=== PATIENT | male | born 1955 | race Two or more races ===

== ENCOUNTER 2024-01-14 15:36 | Inpatient (IN) | payer OTHER ==
[~2024-01-14] VITALS: Ht 167.6 cm; Wt 76.0 kg
--- NOTE | 2024-01-14 15:55 | ED.PDOC ---
GI ASSESSMENT HPI Comments 68 y.o male presents to the ED for a chief complaint of diffused abdominal pain and diarrhea x 3 weeks. Patient describes pain as sharp, constant, diffused across abdomen region, and rates it a 8/10 on the pain scale. Patient states passing black stool recently and states pain worsens with eating. No nausea, vomiting, fever, chills, or urinary symptoms reported. Time Seen by MD: 15:49 Reviewed Notes: Nurses Notes, Medications, Allergies Allergies: Coded Allergies: NO KNOWN ALLERGIES (Unverified , 01/14/24) Information Source: Patient Mode of Arrival: Ambulatory Timing: Weeks (3) Duration: Since onset Quality: Sharp Vomitus: None Stool: Black Severity: Moderate Recent: None Recent Hx of: None Pain Location: Diffuse Modifying Factors: Nothing Associated sign and symptoms: Melena, Abdominal Pain Past Medical History PAST MEDICAL HISTORY: DM Surgical History: Denies all surgeries Family History Family History: Reviewed,noncontributory to illness Social History Smoker: Non-Smoker Alcohol: Occasionally Drugs: Denies Drug Use Lives In: Home Constitutional: denies: chills, diaphoresis, fatigue, fever, malaise, sweats, weakness, others EENTM: denies: blurred vision, double vision, ear bleeding, ear discharge, ear drainage, ear pain, ear ringing, eye pain, eye redness, hearing loss, mouth pain, mouth swelling, nasal discharge, nose bleeding, nose congestion, nose pain, photophobia, tearing, throat pain, throat swelling, voice changes, others Respiratory: denies: cough, hemoptysis, orthopnea, SOB at rest, shortness of breath, SOB with excertion, stridor, wheezing, others Cardiovascular: denies: chest pain, dizzy spells, diaphoresis, Dyspnea on exertion, edema, irregular heart beat, left arm pain, lightheadedness, palpitations, PND, syncope, others Gastrointestinal: reports: abdominal pain, melena; denies: abdomen distended, blood streaked bowels, constipated, diarrhea, dysphagia, difficulty swallowing, hematemesis, nausea, poor appetite, poor fluid intake, rectal bleeding, rectal pain, vomiting, others Genitourinary: denies: burning, dysuria, flank pain, frequency, hematuria, incontinence, penile discharge, penile sore, pain, testicle pain, testicle swe lling, urgency, others Neurological: denies: dizziness, fainting, headache, left sided numbness, left sided weakness, numbness, paresthesia, pre-existing deficit, right sided numbness, right sided weakness, seizure, speech problems, tingling, tremors, weakness, others Musculoskeletal: denies: back pain, gout, joint pain, joint swelling, muscle pain, muscle stiffness, neck pain, others Integumetry: denies: bruises, change in color, change in hair/nails, dryness, laceration, lesions, lumps, rash, wounds, others Allergic/Immunocompromised: denies: Difficulty Healing, Frequent Infections, Hives, Itching, others Hematologic/Lymphatic: denies: anemia, blood clots, easy bleeding, easy bruising, swollen glands, others Endocrine: denies: excessive hunger, excessive sweating, excessive thirst, excessive urination, flushing, intolerance to cold, intolerance to heat, unexplained weight gain, unexplained weight loss, others Psychiatric: denies: anxiety, bipolar disorder, depression, hopeless, panic disorder, schizophrenia, sleepless, suicidal, others All Other Systems: Reviewed and Negative Physical Exam General Appearance: Moderate Distress HEENT: Normal ENT Inspection, Pharynx Normal, TMs Normal Neck: Full Range of Motion, Non-Tender, Normal, Normal Inspection Respiratory: Chest Non-Tender, Lungs Clear, No Accessory Muscle Use, No Respiratory Distress, Normal Breath Sounds Cardiovascular: No Edema, No JVD, No Murmur, No Gallop, Normal Peripheral Pulses, Regular Rate/Rhythm Breast Exam: Deferred Gastrointestinal: Epigastric, No Organomegaly, No Pulsatile Mass, Normal Bowel Sounds, Soft, Tenderness Genitalia: Deferred Pelvic: Deferred Rectal: Deferred Extremities: No calf tenderness, Normal capillary refill, Normal inspection, No rmal range of motion, Non-tender, No pedal edema Musculoskeletal : Apperance: Normal Neurologic: Alert, oracle developer II-XII nml as Tested, No Motor Deficits, Normal Affect, Normal Mood, No Sensory Deficits Cerebellar Function: Normal Reflexes: Normal Skin: Dry, Normal Color, Warm Lymphatic: No Adenopathy Was a procedure done? Was a procedure done?: No GI differential Dx Differential Diagnosis: Gastritis/PUD, Anemia, Esophageal Varicies X-Ray, Labs, Meds, VS Vital Signs Date Time Temp Pulse Resp B/P (MAP) Pulse Ox O2 Delivery O2 Flow Rate FiO2 01/14/24 15:52 98.7 88 18 141/69 (93) 96 01/14/24 15:52 98.7 88 18 141/69 (93) 96 98.7 Lab Test 01/14/24 19:30 01/14/24 16:00 Range/Units Urine Color Light-yellow Yellow Urine Clarity Clear Clear Urine pH 5.0 5.0-9.0 Urine Specific [place] 1.026 1.001-1.035 Urine Protein Negative Negative Urine Ketones Negative Negative Urine Blood Negative Negative /uL Urine Nitrite Negative Negative Urine Bilirubin Negative Negative Urine Urobilinogen Normal Negative mg/dL Urine Leukocyte Esterase Negative Negative /uL Urine RBC 1 0 - 3 /hpf Urine WBC 1 0 - 3 /hpf Urine Squamous Epithelial Cells Few <5 /hpf Urine Bacteria Few H None Seen /hpf Urine Glucose 3+ H Normal mg/dL White Blood Count 5.9 4.4-10.8 10^3/uL Red Blood Count 5.14 4.5-5.90 10^6/uL Hemoglobin 14.7 13.5-17.5 g/dL Hematocrit 43.1 41.0-53.0 % Mean Corpuscular Volume 83.9 80.0-100.0 fL Mean Corpuscular Hemoglobin 28.6 28.0-32.0 pg Mean Corpuscular Hemoglobin Concent 34.1 32.0-36.0 g/dL Red Cell Distribution Width 13.5 11.8-14.3 % Platelet Count 217 140-450 10^3/uL Mean Platelet Volume 6.6 L 6.9-10.8 fL Neutrophils (%) (Auto) 57.9 37.0-80.0 % Lymphocytes (%) (Auto) 27.4 10.0-50.0 % Monocytes (%) (Auto) 9.3 0.0-12.0 % Eosinophils (%) (Auto) 4.6 0.0-7.0 % Basophils (%) (Auto) 0.8 0.0-2.0 % Neutrophils # (Auto) 3.4 1.6-8.6 10 ^3/uL Lymphocytes # (Auto) 1.6 0.4-5.4 10 ^3/uL Monocytes # (Auto) 0.6 0-1.3 10 ^3/uL Eosinophils # (Auto) 0.3 0-0.8 10 ^3/uL Basophils # (Auto) 0 0-0.2 10 ^3/uL Nucleated Red Blood Cells 0.1 % Sodium Level 139 136-145 mmol/L Potassium Level 4.2 3.5-5.1 mmol/L Chloride Level 103 98-107 mmol/L Carbon Dioxide Level 30 20-31 mmol/L Anion Gap 6 5-15 Blood Urea Nitrogen 15 9-23 mg/dL Creatinine 1.19 0.700-1.30 mg/dL Glomerular Filtration Rate Calc 67 >90 mL/min BUN/Creatinine Ratio 12.6 10.0-20.0 Serum Glucose 216 H 74-106 mg/dL Calcium Level 9.9 8.7-10.4 mg/dL Total Bilirubin 0.7 0.2-1.0 mg/dL Aspartate Amino Transferase (AST) 28 13-40 U/L Alanine Aminotransferase (ALT) 77 H 7-40 U/L Alkaline Phosphatase 119 H 46-116 U/L Total Protein 7.0 5.7-8.2 g/dL Albumin 4.5 3.2-4.8 g/dL Lipase 189 H 12-53 U/L Time of 1ST Reevaluation: 15:55 Reevaluation 1ST: Unchanged Patient Education/Counseling: Diagnosis, Treatment, Prognosis Family Education/Counseling: No Family Present Departure 1 Departure Time of Disposition: 20:11 Impression: Primary Impression: Intractable abdominal pain Additional Impression: Acute pancreatitis Qualified Codes: K85.90 - Acute pancreatitis without necrosis or infection, unspecified Disposition: 09 ADMITTED INPATIENT Admit to: Med Surg Condition: Fair Critical Care Note Critical Care Time?: No Stability Stability form required: Yes Unstable for transfer: ED Physician Assesment (Clinical assesment) I personally scribed for REGI CORNEJO MD ([email or web address]) on 01/14/24 at 15:55. Electronically submitted by Juliette Sears ([facility]). REGI CORNEJO MD Jan 14, 2024 15:55
[2024-01-14 16:18] LABS: Basophils # (auto) 0 10 ^3/uL (0-0.2); Basophils % (auto) 0.8 % (0.0-2.0); Eosinophils # (auto) 0.3 10 ^3/uL (0-0.8); Eosinophils % (auto) 4.6 % (0.0-7.0); Hematocrit 43.1 % (41.0-53.0); Hemoglobin 14.7 g/dL (13.5-17.5); Lymphocytes # (auto) 1.6 10 ^3/uL (0.4-5.4); Lymphocytes % (auto) 27.4 % (10.0-50.0); Mean Corpuscular Hemoglobin 28.6 pg (28.0-32.0); Mean Corpuscular Hgb Conc. 34.1 g/dL (32.0-36.0); Mean Corpuscular Volume 83.9 fL (80.0-100.0); Monocytes # (auto) 0.6 10 ^3/uL (0-1.3); Monocytes % (auto) 9.3 % (0.0-12.0); Neutrophils # (auto) 3.4 10 ^3/uL (1.6-8.6); Neutrophils % (auto) 57.9 % (37.0-80.0); Nucleated Red Blood Cells % 0.1 %; Platelet Count (auto) 217 10^3/uL (140-450); Red Blood Cells 5.14 10^6/uL (4.5-5.90); Red Cell Distribution Width 13.5 % (11.8-14.3); White Blood Cell 5.9 10^3/uL (4.4-10.8)
--- NOTE | 2024-01-14 16:36 | DVH ---
Exam: CT CT AB PEL WO CON-NO ORAL OR IV History: pain Comparison Study: None Technique: Multidetector spiral CT of the abdomen and pelvis was performed from lung bases to pubic symphysis. Imaging was performed without IV contrast. Axial, coronal and sagittal multiplanar reform ats were obtained from the axial data set by the technologist. Radiation dose : Abdomen/Pelvis: CTDIvol 9 mGy, DLP 453 mGy*cm. Findings: Evaluation of solid organs is limited due to lack of intravenous contrast use. Lung Bases: No acute or significant lung base finding. Normal heart size. No pleural or pericardial effusion. Liver: The liver is normal in size. No focal lesions. Gallbladder and biliary Tree: Unremarkable Spleen: Unremarkable Pancreas: The pancreas is grossly normal in appearance. Adrenal Glands: Unremarkable Kidneys: Kidneys are grossly normal without calculi or hydronephrosis. Bladder: Grossly unremarkable for degree of distention. Bowel: The stomach is grossly normal in appearance. Small bowel and colon are normal in caliber and d istribution. Normal appendix is visualized in the right lower quadrant without findings of appendici tis. Ascites: Absent Lymphadenopathy: No mesenteric, retroperitoneal or periportal lymphadenopathy. Abdominal wall and Mesentery: Unremarkable. Vasculature: The visualized abdominal aorta is normal in size and caliber. Evaluation of abdominal a nd pelvic vessels is limited due to lack of intravenous contrast. Pelvic Organs: Prostate is enlarged. Musculoskeletal: No aggressive focal bony lesions, acute fractures or dislocation. IMPRESSION: 1. No acute abdominal or pelvic findings. Prostatomegaly. Radiation optimization: All CT scans at this facility use at least one of these dose optimization amanda hniques: Automated exposure control mA and/or kV adjustment per patient size (includes targeted exams where dose is matched to clinical indication) or iterative reconstruction. HS:Y
[2024-01-14 16:42] LABS: Alanine Aminotransferase 77 U/L (7-40); Albumin 4.5 g/dL (3.2-4.8); Alkaline Phosphatase 119 U/L (46-116); Anion Gap 6 (5-15); Aspartate Aminotransferase 28 U/L (13-40); BUN/Creatinine Ratio 12.6 (10.0-20.0); Bilirubin, Total 0.7 mg/dL (0.2-1.0); Blood Urea Nitrogen 15 mg/dL (9-23); Calcium 9.9 mg/dL (8.7-10.4); Carbon Dioxide 30 mmol/L (20-31); Chloride 103 mmol/L (98-107); Glucose 216 mg/dL (74-106); Lipase 189 U/L (12-53); Potassium 4.2 mmol/L (3.5-5.1); Sodium 139 mmol/L (136-145)
[2024-01-14 19:57] LABS: Urine Bacteria FEW /hpf (None Seen); Urine Blood Negative /uL (Negative); Urine Clarity Clear (Clear); Urine Color Light-Yellow (Yellow); Urine Protein, UAD Negative (Negative); Urine Specific Gravity 1.026 (1.001-1.035); Urine Urobilinogen Normal (Negative); Urine WBC 1 /hpf (0 - 3)
[2024-01-14] MEDS ORDERED: NITROGLYCERIN 0.4 MG SL TAB SL PRN (20:30)
[2024-01-14] MEDS ORDERED: MORPHINE SULFATE INJ 2 MG/ml SYRG IV PRN ×2 (20:30)
[2024-01-14] MEDS ORDERED: ONDANSETRON HCL 4 MG/2 ML VIAL IV PRN (20:30)
[2024-01-14] MEDS: ENOXAPARIN SOD 40 MG/0.4 ML SYRINGE SC SCH (21:38)
[2024-01-14] MEDS: SODIUM CHLOR 0.9% PF (SALINE LOCK) 10ML VIAL/SYR IV SCH (22:03)
--- NOTE | 2024-01-14 22:11 | DVHHPRES ---
History of Present Illness Resident Creating Document: JUVE GONZÁLES RESIDENT History of Present Illness MAR SHI 68 years old male with a PMH of type 2 DM presented to the ED with the chief complaints of diffuse abdominal pain for past 3 weeks. Patient reported he has been having diffuse abdominal pain which is sharp, constant 7/10, no radiating, recently aggravated with eating or but no relieving factors but associated with black stools, pain getting worsening which prompted him to visit ED. On my assessment patient denies nausea, vomiting, fever, chills, and other associated symptoms. Past Medical History Type 2 DM, BPH,HLD Past Surgical History Left shoulder surgery Family History: None Past Social History Lives with family. Denies smoking, alcohol and other drug abuse Review of Systems Constitutional: No: Fever, Chills, Sweats, Weakness, Malaise, Other Eyes: No: Pain, Vision change, Conjunctivae inflammation, Eyelid inflammation, Other, Redness ENT: No: Ear pain, Ear discharge, Nose pain, Nose discharge, Nose congestion, Mouth pain, Mouth swelling, Throat pain, Throat swelling, Other Respiratory: No: Cough, Dry, Shortness of breath, SOB with excertion, Wheezing, Hemoptysis, Pleuritic Pain, Sputum, Wheezing, Other Gastrointestinal: Nausea, Vomiting, Melena Genitourinary: No Dysuria, No Frequency, No Incontinence, No Hematuria, No Retention, No Other Musculoskeletal: No: other, neck pain, shoulder pain, arm pain, back pain, hand pain, leg pain, foot pain Skin: No: Rash, Lesions, Jaundice, Bruising, Other Neurological: No: Weakness, Numbness, Incoordination, Change in speech, Confusion, Seizures, Other Allergies: Coded Allergies: NO KNOWN ALLERGIES (Unverified , 01/14/24) Medications Current Medications Medications Dose Ordered Sig/Karey Route Start Time Stop Time Status Last Admin Dose Admin Sodium Chloride 10 ml Q8HR IV 01/14/24 22:00 01/14/24 22:03 10 ML Ondansetron HCl 4 mg Q4HP PRN IV 01/14/24 20:30 Acetaminophen 650 mg Q6HP PRN PO 01/14/24 20:30 Morphine Sulfate 2 mg Q4HPRN PRN IV 01/14/24 20:30 Nitroglycerin 0.4 mg Q5MINP PRN SL 01/14/24 20:30 Morphine Sulfate 2 mg Q30M PRN IV 01/14/24 20:30 Exam Vital Signs Vital Signs Date Time Temp Pulse Resp B/P (MAP) Pulse Ox O2 Delivery O2 Flow Rate FiO2 01/14/24 21:40 97.5 65 18 119/68 (85) 98 97.5 Exam Pt is lying on bed General Appearance: Alert, Oriented X3, Cooperative, Not in acute distress HEENT: Atraumatic, Mucous membranes moist/pink Respiratory: Clear to auscultation, Normal air movement, No added sounds Cardiovascular: Regular rate, Normal S1, Normal S2, No murmurs Abdominal: Active bowel sounds, bloated, no tenderness Extremities: No edema, Normal pulses, No tenderness/swelling Rectal Exam :No external abnormalities around canal, sphincter tone normal, no masses palpable, stool collected and sent sample for FOB Skin: No Significant rash, Neuro: Normal speech, sensorimotor deficits none Psych/Mental Status: Mental status NL, Mood NL Nurse was there as sharperone during examination Labs/Xrays Labs Test 01/14/24 19:30 01/14/24 16:00 Range/Units Urine Color Light-yellow Yellow Urine Clarity Clear Clear Urine pH 5.0 5.0-9.0 Urine Specific [place] 1.026 1.001-1.035 Urine Protein Negative Negative Urine Ketones Negative Negative Urine Blood Negative Negative /uL Urine Nitrite Negative Negative Urine Bilirubin Negative Negative Urine Urobilinogen Normal Negative mg/dL Urine Leukocyte Esterase Negative Negative /uL Urine RBC 1 0 - 3 /hpf Urine WBC 1 0 - 3 /hpf Urine Squamous Epithelial Cells Few <5 /hpf Urine Bacteria Few H None Seen /hpf Urine Glucose 3+ H Normal mg/dL White Blood Count 5.9 4.4-10.8 10^3/uL Red Blood Count 5.14 4.5-5.90 10^6/uL Hemoglobin 14.7 13.5-17.5 g/dL Hematocrit 43.1 41.0-53.0 % Mean Corpuscular Volume 83.9 80.0-100.0 fL Mean Corpuscular Hemoglobin 28.6 28.0-32.0 pg Mean Corpuscular Hemoglobin Concent 34.1 32.0-36.0 g/dL Red Cell Distribution Width 13.5 11.8-14.3 % Platelet Count 217 140-450 10^3/uL Mean Platelet Volume 6.6 L 6.9-10.8 fL Neutrophils (%) (Auto) 57.9 37.0-80.0 % Lymphocytes (%) (Auto) 27.4 10.0-50.0 % Monocytes (%) (Auto) 9.3 0.0-12.0 % Eosinophils (%) (Auto) 4.6 0.0-7.0 % Basophils (%) (Auto) 0.8 0.0-2.0 % Neutrophils # (Auto) 3.4 1.6-8.6 10 ^3/uL Lymphocytes # (Auto) 1.6 0.4-5.4 10 ^3/uL Monocytes # (Auto) 0.6 0-1.3 10 ^3/uL Eosinophils # (Auto) 0.3 0-0.8 10 ^3/uL Basophils # (Auto) 0 0-0.2 10 ^3/uL Nucleated Red Blood Cells 0.1 % Sodium Level 139 136-145 mmol/L Potassium Level 4.2 3.5-5.1 mmol/L Chloride Level 103 98-107 mmol/L Carbon Dioxide Level 30 20-31 mmol/L Anion Gap 6 5-15 Blood Urea Nitrogen 15 9-23 mg/dL Creatinine 1.19 0.700-1.30 mg/dL Glomerular Filtration Rate Calc 67 >90 mL/min BUN/Creatinine Ratio 12.6 10.0-20.0 Serum Glucose 216 H 74-106 mg/dL Calcium Level 9.9 8.7-10.4 mg/dL Total Bilirubin 0.7 0.2-1.0 mg/dL Aspartate Amino Transferase (AST) 28 13-40 U/L Alanine Aminotransferase (ALT) 77 H 7-40 U/L Alkaline Phosphatase 119 H 46-116 U/L Total Protein 7.0 5.7-8.2 g/dL Albumin 4.5 3.2-4.8 g/dL Lipase 189 H 12-53 U/L Assessment/Plan Assessment/Plan # ? Acute pancreatitis -elevated lipase -CT ABD pelvis no acute abnormalities -currently NPO -pain management as needed # melena -CT abdominal pelvis showed no acute changes -monitor lab, Ordered stool occult blood -GI consult - Rectal Exam :No external abnormalities around canal, sphincter tone normal, no masses palpable, stool collected and sent sample for FOB # BPH -continue home meds # hyperlipidemia -resumed home meds No Lovenox for now Protonix Diabetic diet Reconciled home meds Goals of care discussed with the patient for more than 27 minutes: Full code status Case management discussed with Dr. Silver, patient and nurse Plan discussed with: Patient My Orders Orders - JUVE GONZÁLES RESIDENT Procedure Category Date Status Time Admit ADMIT 01/14/24 Transmitted 20:30 Allergies LIONEL 01/14/24 In Process 20:30 Code Status CODE 01/14/24 Transmitted 20:30 Sodium Chloride Lock PHA 01/14/24 In Process (Saline Lock Ns) 22:00 Ondansetron Hcl PHA 01/14/24 In Process (Zofran) 20:30 Complete Blood Count LAB 01/15/24 Verified 04:00 Comprehensive LAB 01/15/24 Verified Metabolic Panel 04:00 Npo (Nothing By DIET 01/15/24 Transmitted Mouth) Diet Breakfast Acetaminophen Tablet PHA 01/14/24 In Process (Tylenol Tablet) 20:30 Morphine Sulfate PHA 01/14/24 In Process Injection 20:30 Nitroglycerin PHA 01/14/24 In Process Sublingual (Ntrostat 20:30 Morphine Sulfate PHA 01/14/24 In Process Injection 20:30 Oxygen By Nasal RT 01/14/24 Transmitted Cannula 20:30 Stat Ekg For Chest LIONEL 01/14/24 In Process Pain 20:30 Notify Of Changes LIONEL 01/14/24 In Process From Base 20:30 Bevel Operator For [facility] 01/14/24 In Process 24 Hours 20:30 Emergency Dysrhythmia LIONEL 01/14/24 In Process Protocol 20:30 Rhythm Strips Once [facility] 01/14/24 In Process Every Shift 20:30 Hemoglobin A1c LAB 01/14/24 Logged 21:58 Stool Occult Blood LAB 01/14/24 Logged 21:58 Lipid Panel LAB 01/14/24 Logged 21:58 Drug Screen LAB 01/14/24 In Process 21:58 Blood Alcohol LAB 01/14/24 Logged 21:58 Tamsulosin PHA 01/14/24 Verified Hydrochloride (Flomax) 22:15 Tamsulosin PHA 01/15/24 Verified Hydrochloride (Flomax) 18:00 Atorvastatin (Lipitor) PHA 01/15/24 Verified 22:00 Date of Service: Jan 14, 2024 Billing Provider: HELENA SILVER MD Common Visit Codes: 67328-[id number] INP/OBS CARE (HIGH) Secondary Visit Codes: [id number]-[id number] CARE PLAN 30 MINUTES JUVE GONZÁLES Jan 14, 2024 22:11 HELENA SILVER MD Jan 15, 2024 12:52
[2024-01-14 22:35] VITALS: BP 123/71; PULSE 64; RESP 18; TEMP 97.3; O2SAT 96
[2024-01-14 22:35] LABS: Amphetamine Screen, Urine Neg (NEGATIVE); Barbiturate Scree,Urine Neg (NEGATIVE); Benzodiazephine Screen, Urine Neg (NEGATIVE); Cocaine Screen, Urine Neg (NEGATIVE); Opiate Scree,Urine Neg (NEGATIVE)
[2024-01-14] MEDS: PANTOPRAZOLE 40 MG/10 ML VIAL INJ IV ONE (22:43)
[2024-01-14] MEDS: TAMSULOSIN HYDROCHLORIDE 0.4 MG CAP PO ONE (22:50)
[2024-01-14] MEDS: SODIUM CHLORIDE 0.9% 1,000 ML IV SCH (22:54)
[2024-01-14 22:57] LABS: Cannabinoid Screen, Urine Neg (NEGATIVE); Phencyclidine Screen, Urine Neg (NEGATIVE)
[2024-01-14 23:11] LABS: Triglycerides 137 mg/dL (< 150)
[2024-01-14 23:12] LABS: LDL Cholesterol 61 mg/dL (< 100)
[2024-01-14 23:13] LABS: Cholesterol 120 mg/dL (< 200); HDL Cholesterol 44 mg/dL (40-59)
[2024-01-14 23:43] LABS: Blood Alcohol < 3.0 mg/dL (<10)
[2024-01-15] VITALS (7 sets, daily range): BP systolic 108–137; BP diastolic 43–74; PULSE 60–97; RESP 14–18; TEMP 97.6–98; O2SAT 95–97
[2024-01-15 04:55] LABS: Basophils # (auto) 0.1 10 ^3/uL (0-0.2); Basophils % (auto) 1.1 % (0.0-2.0); Eosinophils # (auto) 0.3 10 ^3/uL (0-0.8); Hematocrit 43.1 % (41.0-53.0); Hemoglobin 14.4 g/dL (13.5-17.5); Lymphocytes # (auto) 2.1 10 ^3/uL (0.4-5.4); Mean Corpuscular Hemoglobin 28.2 pg (28.0-32.0); Mean Corpuscular Hgb Conc. 33.3 g/dL (32.0-36.0); Mean Corpuscular Volume 84.7 fL (80.0-100.0); Monocytes # (auto) 0.6 10 ^3/uL (0-1.3); Monocytes % (auto) 8.9 % (0.0-12.0); Neutrophils # (auto) 3.2 10 ^3/uL (1.6-8.6); Nucleated Red Blood Cells % 0.1 %; Platelet Count (auto) 196 10^3/uL (140-450); Red Blood Cells 5.09 10^6/uL (4.5-5.90); Red Cell Distribution Width 13.7 % (11.8-14.3); White Blood Cell 6.2 10^3/uL (4.4-10.8)
[2024-01-15 05:13] LABS: Alanine Aminotransferase 67 U/L (7-40); Albumin 3.8 g/dL (3.2-4.8); Alkaline Phosphatase 81 U/L (46-116); Anion Gap 8 (5-15); Aspartate Aminotransferase 27 U/L (13-40); BUN/Creatinine Ratio 10.9 (10.0-20.0); Bilirubin, Total 0.7 mg/dL (0.2-1.0); Blood Urea Nitrogen 10 mg/dL (9-23); Calcium 9.3 mg/dL (8.7-10.4); Carbon Dioxide 24 mmol/L (20-31); Chloride 107 mmol/L (98-107); Glucose 154 mg/dL (74-106); Sodium 139 mmol/L (136-145); Total Protein 6.2 g/dL (5.7-8.2)
[2024-01-15] MEDS: PANTOPRAZOLE 40 MG/10 ML VIAL INJ IV SCH ×2 (09:38→21:37)
[2024-01-15] MEDS: ACETAMINOPHEN 325 MG TAB PO PRN (12:42)
--- NOTE | 2024-01-15 13:36 | DVHPN2 ---
Subjective Seen and examined at bedside. Abd Pain has improved. Per patient EGD tomorrow by Dr Akhtar Changes from previous H/P or p: No Changes Eyes: No Pain, No Vision change, No Conjunctivae inflammation, No Eyelid inflammation, No Other, No Redness ENT: No Ear pain, No Ear discharge, No Nose pain, No Nose discharge, No Nose congestion, No Mouth pain, No Mouth swelling, No Throat pain, No Throat swelling, No Other Respiratory: No Cough, No Dry, No Shortness of breath, No SOB with excertion, No Wheezing, No Hemoptysis, No Pleuritic Pain, No Sputum, No Other Gastrointestinal: No Nausea, No Vomiting, No Abdominal Pain, No Diarrhea, No Constipation, No Melena, No Hematochezia, No Other Genitourinary: No Dysuria, No Frequency, No Incontinence, No Hematuria, No Retention, No Other Musculoskeletal: No other, No neck pain, No shoulder pain, No arm pain, No back pain, No hand pain, No leg pain, No foot pain Skin: No Rash, No Lesions, No Jaundice, No Bruising, No Other Objective Vitals Vital Signs Date Time Temp Pulse Resp B/P (MAP) Pulse Ox O2 Delivery O2 Flow Rate FiO2 01/15/24 12:00 76 14 112/59 (76) 98 01/15/24 07:30 98.7 98.7 01/15/24 07:30 Room Air* 0 21 General Appearance: Alert, Oriented X3, Cooperative, No acute distress HEENT: Atraumatic Neck: Carotid Bruits [place] Lungs: Clear to auscultation Cardiovascular: Regular rate, Normal S1, Normal S2 Abdomen: Normal bowel sounds, Soft Rectal: Deferred Genitourinary: No Apparent Abnormalities Psych/Mental Status: Mental status NL Medications Current Medications Medications Dose Ordered Sig/Karey Route Start Time Stop Time Status Last Admin Dose Admin Sodium Chloride 10 ml Q8HR IV 01/14/24 22:00 01/15/24 06:00 10 ML Ondansetron HCl 4 mg Q4HP PRN IV 01/14/24 20:30 Acetaminophen 650 mg Q6HP PRN PO 01/14/24 20:30 01/15/24 12:42 650 MG Morphine Sulfate 2 mg Q4HPRN PRN IV 01/14/24 20:30 Nitroglycerin 0.4 mg Q5MINP PRN SL 01/14/24 20:30 Morphine Sulfate 2 mg Q30M PRN IV 01/14/24 20:30 Tamsulosin HCl 0.4 mg QPM PO 01/15/24 18:00 Atorvastatin Calcium 40 mg HS PO 01/15/24 22:00 Pantoprazole Sodium 40 mg DAILY IV 01/15/24 10:00 01/15/24 09:38 40 MG Sodium Chloride 1,000 ml @ 100 mls/hr Q10H IV 01/14/24 22:30 01/15/24 08:00 100 MLS/HR Laboratory Results Laboratory Tests 01/15/24 04:14 Chemistry Test 01/14/24 16:00 01/15/24 04:14 Albumin 4.5 g/dL (3.2-4.8) 3.8 g/dL (3.2-4.8) Calcium Level 9.9 mg/dL (8.7-10.4) 9.3 mg/dL (8.7-10.4) Total Protein 7.0 g/dL (5.7-8.2) 6.2 g/dL (5.7-8.2) Lipid panel Test 01/14/24 16:00 Cholesterol Level 120 mg/dL (< 200) HDL Cholesterol 44 mg/dL (40-59) Lipase 189 U/L (12-53) H Triglycerides Level 137 mg/dL (< 150) LFT Test 01/14/24 16:00 01/15/24 04:14 Alanine Aminotransferase (ALT) 77 U/L (7-40) H 67 U/L (7-40) H Alkaline Phosphatase 119 U/L (46-116) H 81 U/L (46-116) Aspartate Amino Transferase (AST) 28 U/L (13-40) 27 U/L (13-40) Total Bilirubin 0.7 mg/dL (0.2-1.0) 0.7 mg/dL (0.2-1.0) HgA1c, TSH Test 01/14/24 16:00 Hemoglobin A1c 10.4 % A1C (<5.7) H Urinalysis Test 01/14/24 19:30 Urine Color Light-yellow (Yellow) Urine Clarity Clear (Clear) Urine pH 5.0 (5.0-9.0) Urine Specific [place] 1.026 (1.001-1.035) Urine Protein Negative (Negative) Urine Ketones Negative (Negative) Urine Blood Negative /uL (Negative) Urine Nitrite Negative (Negative) Urine Bilirubin Negative (Negative) Urine Urobilinogen Normal mg/dL (Negative) Urine Leukocyte Esterase Negative /uL (Negative) Urine RBC 1 /hpf (0 - 3) Urine WBC 1 /hpf (0 - 3) Urine Squamous Epithelial Cells Few /hpf (<5) Urine Bacteria Few /hpf (None Seen) H Urine Glucose 3+ mg/dL (Normal) H Assessment/Plan Assessment/Plan # ? Acute pancreatitis -elevated lipase -CT ABD pelvis no acute abnormalities -currently NPO -pain management as needed # Possible GI Bleed??? -CT abdominal pelvis showed no acute changes -monitor lab, Ordered stool occult blood -GI consult - Rectal Exam :No external abnormalities around canal, sphincter tone normal, no masses palpable, stool collected and sent sample for FOBT EGD in AM # BPH -continue home meds # hyperlipidemia -resumed home meds No Lovenox for now Protonix Diabetic diet Reconciled home meds Goals of care FULL CODE Spouse at bedside Plan discussed with: Patient, Spouse My Orders Orders - HELENA LEE MD Procedure Category Date Status Time Pls Schedule Appt MEMBERSERV 01/15/24 Transmitted With Dividend Solarp 13:30 Pantoprazole PHA 01/15/24 Verified (Protonix) 22:00 Chest Portable XY 01/15/24 Verified 13:33 Hemoglobin & LAB 01/16/24 Verified Hematocrit 04:00 Prothrombin Time W/ LAB 01/16/24 Verified INR 04:00 Partial LAB 01/16/24 Verified Thromboplastin Time 04:00 Date of Service: Jan 15, 2024 Billing Provider: EHLENA LEE MD Common Visit Codes: [id number] INP/OBS CARE(HIGH) HELENA LEE MD Jan 15, 2024 13:36
--- NOTE | 2024-01-15 14:19 | DVH ---
CHEST RADIOGRAPH Indication:preop Technique: Single frontal view of the chest was obtained COMPARISON: None FINDINGS: Lines and Tubes: None Lungs: Clear Pleura: No effusion. No pneumothorax. Cardiomediastinal contours: Unremarkable Bones: Unremarkable IMPRESSION: No acute disease.
[2024-01-15] MEDS ORDERED: GLIP10TA9 PO (18:32)
[2024-01-15] MEDS ORDERED: ATOR-507 PO (18:33)
[2024-01-15] MEDS ORDERED: TRAZ-227 PO (18:34)
[2024-01-15] MEDS ORDERED: TAMS1CAP25 PO (18:35)
[2024-01-15] MEDS: TAMSULOSIN HYDROCHLORIDE 0.4 MG CAP PO SCH (18:35)
[2024-01-15] MEDS: ATORVASTATIN 20 MG TAB PO SCH (21:36)
--- NOTE | 2024-01-15 22:49 | DVHINCON2 ---
Date of service: Jan 15, 2024 Referring Physician Donny Slade Reason for Consultation Epigastric pain History of Present Illness MAR SHI 68 years old male with a PMH of type 2 DM presented to the ED with the chief complaints of diffuse upper abdominal pain for past 3 weeks. Patient reported he has been having diffuse abdominal pain which is sharp, constant 7/10, in the epigastric region and the left quadrant region . Pain aggravated with eating or but no relieving factors but associated with black stools, pain getting worsening which prompted him to visit ED. On my assessment patient denies nausea, vomiting, fever, chills, and other associated symptoms. No prior endoscopy Past Medical History Past Medical History Type 2 DM, BPH,HLD Past Surgical History Past Surgical History Left shoulder surgery Family History: Patient reports no known family medical history. Allergies: Coded Allergies: NO KNOWN ALLERGIES (Unverified , 01/14/24) Home Meds Reported Medications Tamsulosin HCl (Tamsulosin Hydrochloride) 0.4 Mg Cap, 0.4 MG PO, CAP 01/15/24 Trazodone Hcl (Trazodone Hcl) 50 Mg Tab, 50 MG PO, MG 01/15/24 Atorvastatin Calcium (Lipitor) 40 Mg Tab, 1 TAB PO DAILY, #30 TAB 5 Refills 01/15/24 Glipizide (Glipizide) 10 Mg Tab, 10 MG PO 2XW for 30 Days, MG 01/15/24 Current Medications Current Medications Medications (Trade) Dose Ordered Sig/Karey Route PRN Reason Start Time Stop Time Status Last Admin Tamsulosin HCl (Flomax) 0.4 mg QPM PO 01/15/24 18:00 01/15/24 18:35 Atorvastatin Calcium (Lipitor) 40 mg HS PO 01/15/24 22:00 01/15/24 21:36 Pantoprazole Sodium (Protonix) 40 mg DAILY IV 01/15/24 10:00 01/15/24 13:34 DC 01/15/24 09:38 Pantoprazole Sodium (Protonix) 40 mg BID IV 01/15/24 22:00 01/15/24 21:37 Vital Signs Vital Signs Date Time Temp Pulse Resp B/P (MAP) Pulse Ox O2 Delivery O2 Flow Rate FiO2 01/15/24 21:00 97.7 97 18 132/73 (92) 97 97.7 01/15/24 17:56 Room Air* 0 21 Physical Exam General Appearance: Alert, Oriented X3, Cooperative, No acute distress HEENT: Atraumatic Neck: Carotid [place]its [place] Lungs: Clear to auscultation Cardiovascular: Regular rate, Normal S1, Normal S2 Abdomen: Normal bowel sounds, Soft Rectal: Deferred Genitourinary: No Apparent Abnormalities Psych/Mental Status: Mental status NL Labs/Diagnostic Data Labs Test 01/15/24 21:53 01/15/24 04:14 01/14/24 19:30 01/14/24 16:00 Range/Units POC Glucose 123 H 70-106 mg/dl White Blood Count 6.2 4.4-10.8 10^3/uL Red Blood Count 5.09 4.5-5.90 10^6/uL Hemoglobin 14.4 13.5-17.5 g/dL Hematocrit 43.1 41.0-53.0 % Mean Corpuscular Volume 84.7 80.0-100.0 fL Mean Corpuscular Hemoglobin 28.2 28.0-32.0 pg Mean Corpuscular Hemoglobin Concent 33.3 32.0-36.0 g/dL Red Cell Distribution Width 13.7 11.8-14.3 % Platelet Count 196 140-450 10^3/uL Mean Platelet Volume 6.8 L 6.9-10.8 fL Neutrophils (%) (Auto) 51.0 37.0-80.0 % Lymphocytes (%) (Auto) 34.0 10.0-50.0 % Monocytes (%) (Auto) 8.9 0.0-12.0 % Eosinophils (%) (Auto) 5.0 0.0-7.0 % Basophils (%) (Auto) 1.1 0.0-2.0 % Neutrophils # (Auto) 3.2 1.6-8.6 10 ^3/uL Lymphocytes # (Auto) 2.1 0.4-5.4 10 ^3/uL Monocytes # (Auto) 0.6 0-1.3 10 ^3/uL Eosinophils # (Auto) 0.3 0-0.8 10 ^3/uL Basophils # (Auto) 0.1 0-0.2 10 ^3/uL Nucleated Red Blood Cells 0.1 % Sodium Level 139 136-145 mmol/L Potassium Level 4.0 3.5-5.1 mmol/L Chloride Level 107 98-107 mmol/L Carbon Dioxide Level 24 20-31 mmol/L Anion Gap 8 5-15 Blood Urea Nitrogen 10 9-23 mg/dL Creatinine 0.92 0.700-1.30 mg/dL Glomerular Filtration Rate Calc 91 >90 mL/min BUN/Creatinine Ratio 10.9 10.0-20.0 Serum Glucose 154 H 74-106 mg/dL Calcium Level 9.3 8.7-10.4 mg/dL Total Bilirubin 0.7 0.2-1.0 mg/dL Aspartate Amino Transferase (AST) 27 13-40 U/L Alanine Aminotransferase (ALT) 67 H 7-40 U/L Alkaline Phosphatase 81 46-116 U/L Total Protein 6.2 5.7-8.2 g/dL Albumin 3.8 3.2-4.8 g/dL Urine Color Light-yellow Yellow Urine Clarity Clear Clear Urine pH 5.0 5.0-9.0 Urine Specific [place] 1.026 1.001-1.035 Urine Protein Negative Negative Urine Ketones Negative Negative Urine Blood Negative Negative /uL Urine Nitrite Negative Negative Urine Bilirubin Negative Negative Urine Urobilinogen Normal Negative mg/dL Urine Leukocyte Esterase Negative Negative /uL Urine RBC 1 0 - 3 /hpf Urine WBC 1 0 - 3 /hpf Urine Squamous Epithelial Cells Few <5 /hpf Urine Bacteria Few H None Seen /hpf Urine Glucose 3+ H Normal mg/dL Urine Opiates Screen Neg NEGATIVE Urine Fentanyl Screen Neg NEGATIVE Urine Barbiturates Screen Neg NEGATIVE Urine Phencyclidine Screen Neg NEGATIVE Urine Amphetamines Screen Neg NEGATIVE Urine Benzodiazepines Screen Neg NEGATIVE Urine Cocaine Screen Neg NEGATIVE Urine Cannabinoids Screen Neg NEGATIVE Hemoglobin A1c 10.4 H <5.7 % A1C Triglycerides Level 137 < 150 mg/dL Cholesterol Level 120 < 200 mg/dL LDL Cholesterol 61 < 100 mg/dL HDL Cholesterol 44 40-59 mg/dL Lipase 189 H 12-53 U/L Plasma/Serum Blood Alcohol < 3.0 <10 mg/dL ABD PELVIC CT SCAN IMPRESSION: 1. No acute abdominal or pelvic findings. Prostatomegaly. Problems(with codes): (1) Intractable abdominal pain (2) Poorly controlled diabetes mellitus (3) Acute pancreatitis Plan/Recommendation Assessment plan Poorly controlled diabetes which could be a causative factor of mild pancreatitis We will check right upper quadrant ultrasound to rule out gallstones Patient denies significant use or alcohol IV Protonix 40 mg I will schedule him for endoscopy to rule out peptic ulcer disease rule out GERD Further recommendations will made after the above Plan discussed with: Patient ROLLY DARLING MD Jan 15, 2024 22:49
[2024-01-16 05:00] VITALS: BP 111/63; PULSE 72; RESP 18; TEMP 97.7; O2SAT 98
[2024-01-16 06:57] LABS: Hematocrit 41.8 % (41.0-53.0); Hemoglobin 14.1 g/dL (13.5-17.5)
[2024-01-16 07:10] LABS: INR 1.08 (0.9-1.15); Partial Thromboplastin Time 28.2 SEC (24.5-34.5); Prothrombin Time 11.4 sec (9.3-11.8)
[2024-01-16] MEDS ORDERED: ACCU-CHEK COMFORT CURVE STRIP VI ONE (07:15)
[2024-01-16] MEDS ORDERED: MIDAZOLAM HCL 2MG/2ML 2ml VIAL (1mg/ml) ONE (07:18)
[2024-01-16] MEDS ORDERED: fentaNYL CITRATE 100 MCG/2 ML VL ONE (07:18)
[2024-01-16] MEDS ORDERED: GLYCOPYRROLATE 0.2 MG/ML 1ML VIAL ONE (07:19)
[2024-01-16] MEDS ORDERED: PROPOFOL 10 MG/ML 20 ML IV ONE (07:19)
[2024-01-16] MEDS ORDERED: ONDANSETRON HCL 4 MG/2 ML VIAL ONE (07:19)
[2024-01-16 07:32] VITALS: PULSE 70; RESP 13; O2SAT 100
--- NOTE | 2024-01-16 07:45 | DVHOP2 ---
Operative Report DATE OF OPERATION: 01/16/24 PROCEDURE: Upper Endoscopy with biopsy. PREOPERATIVE INDICATION: The patient is a 68 -year-old male undergoing endoscopy for epigastric and left upper quadrant pain along with history of dark stools POSTOPERATIVE DIAGNOSES: 1. 2 cm sliding-type hiatal hernia with slightly irregular squamocolumnar junction but no significant erosive esophagitis 2. Mild gastroduodenitis otherwise normal examination up to the 2nd and 3rd part of the duodenum with no fresh or old blood in the upper GI tract PROCEDURE PERFORMED BY: Rolly Akhtar GI NURSE: Phylicia SCOPE: Olympus videoendoscope. ASA CLASS: 2. PREOPERATIVE MEDICATIONS: Mac Dr. Isaías adam PROCEDURE IN DETAIL: After obtaining an informed consent, the patient was placed on left lateral decubitus position. The patient was then sedated with the above medications. A bite block was placed between his teeth. The endoscope was then passed through the oropharynx, into the esophagus, and through the stomach and pylorus up to the second and third part of the duodenum. The endoscope was then withdrawn. There was good bile drainage The 2nd and 3rd part of the duodenal were normal. Duodenal bulb showed mild duodenitis. Duodenal biopsies were obtained .There was no fresh or old blood in the UGI tract The pre-pyloric area antrum and body showed mild gastritis. Gastric biopsies were obtained. On retroflexion and straight on view the fundus cardia and angularis were normal. The endoscope was then withdrawn into the distal esophagus where he had a 2 cm s liding-type hiatal hernia with slightly irregular squamocolumnar junction no significant erosive esophagitis The remaining distal and proximal esophagus and oropharynx were unremarkable The patient tolerated the procedure well without difficulty. COMPLICATIONS : None SPECIMENS: Duodenal biopsies Gastric biopsies DISPOSITION: Transfer back to the floor Stable PLAN: 1. Await for biopsy result 2. Will place pt on Protonix 40 mg p.o. daily 3. Carafate suspension 1 g p.o. twice a day while the patient has an inpatient 4. DC aspirin NSAIDs smoking alcohol 5. It appears the patient's pain have been may have been related to mild pancreatitis, check gallbladder ultrasound 6. Full liquid diet advance as tolerated, check repeat lipase today 7. Outpatient follow up with or next available appointment for elective colonoscopy ROLLY AKHTAR MD Jan 16, 2024 07:45
[2024-01-16 07:47] VITALS: PULSE 75; RESP 12; O2SAT 97
[2024-01-16 08:15] VITALS: BP 97/54; PULSE 70; RESP 14; RESP 18; TEMP 97.7; O2SAT 94; O2SAT 97
--- NOTE | 2024-01-16 09:48 | DVH ---
INDICATION: pancreatitis; mild elevation in LFTS TECHNIQUE: Multiple real-time sonographic images were obtained of the right upper quadrant. COMPARISON: None FINDINGS: The liver demonstrates heterogeneous echotexture without focal mass lesions. Slightly nodu lar contour. The liver measures 14.5 cm. There is no intrahepatic or extrahepatic ductal dilatation. The common duct measures 0.5 cm. The gallbladder is without evidence of stone or sludge. The gallbladder wall measures 0.3 cm and is within normal limits. The right kidney measures 9.0 cm. The right kidney is normal in contour, size, and shape. The echog enicity is normal. There is no hydronephrosis. The pancreas is not well visualized due to overlying bowel gas. IMPRESSION: 1. No evidence of cholecystitis. 2. Probable cirrhosis. 3. Pancreas is obscured and not clearly evaluated in this examination.
[2024-01-16] MEDS ORDERED: PANT40TA2 PO (10:40)
--- NOTE | 2024-01-16 10:45 | DVHDS2 ---
Discharge Summary Date of Admission Jan 14, 2024 at 20:30 Date of Discharge: Jan 16, 2024 Labs/Diagnostic Data: Laboratory Results Test 01/16/24 07:34 01/16/24 06:33 01/15/24 04:14 01/14/24 19:30 POC Glucose 146 mg/dl (70-106) Hemoglobin 14.1 g/dL (13.5-17.5) Hematocrit 41.8 % (41.0-53.0) Prothrombin Time 11.4 sec (9.3-11.8) Prothrombin Time INR 1.08 (0.9-1.15) Activated Partial Thromboplast Time 28.2 SEC (24.5-34.5) Lipase 58 U/L (12-53) White Blood Count 6.2 10^3/uL (4.4-10.8) Red Blood Count 5.09 10^6/uL (4.5-5.90) Mean Corpuscular Volume 84.7 fL (80.0-100.0) Mean Corpuscular Hemoglobin 28.2 pg (28.0-32.0) Mean Corpuscular Hemoglobin Concent 33.3 g/dL (32.0-36.0) Red Cell Distribution Width 13.7 % (11.8-14.3) Platelet Count 196 10^3/uL (140-450) Mean Platelet Volume 6.8 fL (6.9-10.8) Neutrophils (%) (Auto) 51.0 % (37.0-80.0) Lymphocytes (%) (Auto) 34.0 % (10.0-50.0) Monocytes (%) (Auto) 8.9 % (0.0-12.0) Eosinophils (%) (Auto) 5.0 % (0.0-7.0) Basophils (%) (Auto) 1.1 % (0.0-2.0) Neutrophils # (Auto) 3.2 10 ^3/uL (1.6-8.6) Lymphocytes # (Auto) 2.1 10 ^3/uL (0.4-5.4) Monocytes # (Auto) 0.6 10 ^3/uL (0-1.3) Eosinophils # (Auto) 0.3 10 ^3/uL (0-0.8) Basophils # (Auto) 0.1 10 ^3/uL (0-0.2) Nucleated Red Blood Cells 0.1 % Sodium Level 139 mmol/L (136-145) Potassium Level 4.0 mmol/L (3.5-5.1) Chloride Level 107 mmol/L (98-107) Carbon Dioxide Level 24 mmol/L (20-31) Anion Gap 8 (5-15) Blood Urea Nitrogen 10 mg/dL (9-23) Creatinine 0.92 mg/dL (0.700-1.30) Glomerular Filtration Rate Calc 91 mL/min (>90) BUN/Creatinine Ratio 10.9 (10.0-20.0) Serum Glucose 154 mg/dL (74-106) Calcium Level 9.3 mg/dL (8.7-10.4) Total Bilirubin 0.7 mg/dL (0.2-1.0) Aspartate Amino Transferase (AST) 27 U/L (13-40) Alanine Aminotransferase (ALT) 67 U/L (7-40) Alkaline Phosphatase 81 U/L (46-116) Total Protein 6.2 g/dL (5.7-8.2) Albumin 3.8 g/dL (3.2-4.8) Urine Color Light-yellow (Yellow) Urine Clarity Clear (Clear) Urine pH 5.0 (5.0-9.0) Urine Specific [place] 1.026 (1.001-1.035) Urine Protein Negative (Negative) Urine Ketones Negative (Negative) Urine Blood Negative /uL (Negative) Urine Nitrite Negative (Negative) Urine Bilirubin Negative (Negative) Urine Urobilinogen Normal mg/dL (Negative) Urine Leukocyte Esterase Negative /uL (Negative) Urine RBC 1 /hpf (0 - 3) Urine WBC 1 /hpf (0 - 3) Urine Squamous Epithelial Cells Few /hpf (<5) Urine Bacteria Few /hpf (None Seen) Urine Glucose 3+ mg/dL (Normal) Urine Opiates Screen Neg (NEGATIVE) Urine Fentanyl Screen Neg (NEGATIVE) Urine Barbiturates Screen Neg (NEGATIVE) Urine Phencyclidine Screen Neg (NEGATIVE) Urine Amphetamines Screen Neg (NEGATIVE) Urine Benzodiazepines Screen Neg (NEGATIVE) Urine Cocaine Screen Neg (NEGATIVE) Urine Cannabinoids Screen Neg (NEGATIVE) Test 01/14/24 16:00 Hemoglobin A1c 10.4 % A1C (<5.7) Triglycerides Level 137 mg/dL (< 150) Cholesterol Level 120 mg/dL (< 200) LDL Cholesterol 61 mg/dL (< 100) HDL Cholesterol 44 mg/dL (40-59) Plasma/Serum Blood Alcohol < 3.0 mg/dL (<10) Other Laboratory Tests 01/16/24 06:33 01/15/24 04:14 Brief Hx & Hospital Course: MAR SHI 68 years old male with a PMH of type 2 DM presented to the ED with the chief complaints of diffuse abdominal pain for past 3 weeks. Patient reported he has been having diffuse abdominal pain which is sharp, constant 7/10, no radiating, recently aggravated with eating or but no relieving factors but associated with black stools, pain getting worsening which prompted him to visit ED. Patient was seen in GI consult, EGD was done see report below. Patient will be discharged home, possibly has Liver Cirrhosis? from Alcohol. Operations or Procedures Operative Report DATE OF OPERATION: 01/16/24 PROCEDURE: Upper Endoscopy with biopsy. PREOPERATIVE INDICATION: The patient is a 68 -year-old male undergoing endoscopy for epigastric and left upper quadrant pain along with history of dark stools POSTOPERATIVE DIAGNOSES: 1. 2 cm sliding-type hiatal hernia with slightly irregular squamocolumnar junction but no significant erosive esophagitis 2. Mild gastroduodenitis otherwise normal examination up to the 2nd and 3rd part of the duodenum with no fresh or old blood in the upper GI tract PROCEDURE PERFORMED BY: Maru Ahktar GI NURSE: Phylicia SCOPE: Olympus videoendoscope. ASA CLASS: 2. PREOPERATIVE MEDICATIONS: Dr. Isaías Brenner PROCEDURE IN DETAIL: After obtaining an informed consent, the patient was placed on left lateral decubitus position. The patient was then sedated with the above medications. A bite block was placed between his teeth. The endoscope was then passed through the oropharynx, into the esophagus, and through the stomach and pylorus up to the second and third part of the duodenum. The endoscope was then withdrawn. There was good bile drainage The 2nd and 3rd part of the duodenal were normal. Duodenal bulb showed mild duodenitis. Duodenal biopsies were obtained .There was no fresh or old blood in the UGI tract The pre-pyloric area antrum and body showed mild gastritis. Gastric biopsies were obtained. On retroflexion and straight on view the fundus cardia and angularis were normal. The endoscope was then withdrawn into the distal esophagus where he had a 2 cm sliding-type hiatal hernia with slightly irregular squamocolumnar junction no significant erosive esophagitis The remaining distal and proximal esophagus and oropharynx were unremarkable The patient tolerated the procedure well without difficulty. COMPLICATIONS : None SPECIMENS: Duodenal biopsies Gastric biopsies DISPOSITION: Transfer back to the floor Stable PLAN: 1. Await for biopsy result 2. Will place pt on Protonix 40 mg p.o. daily 3. Carafate suspension 1 g p.o. twice a day while the patient has an inpatient 4. DC aspirin NSAIDs smoking alcohol 5. It appears the patient's pain have been may have been related to mild pancreatitis, check gallbladder ultrasound 6. Full liquid diet advance as tolerated, check repeat lipase today 7. Outpatient follow up with me next available appointment for elective colonoscopy Condition at Discharge: Stable Final Diagnosis/Problems List Abdominal Pain Liver Cirrhosis Gastritis Discharge Disposition: Home Discharge Instruct/Medications Diet: See Comment Diet comment: Advance as tolerated, low fat. No Alcohol Activity: Light activity Follow Up/Referral: Dr. Guerda Akhtar in 4-6 weeks Medications: Protonix Discharge Statement: "Patient was advised to return to the ER or call 911 if any headaches, dizziness, shortness of breath, chest pain, abdominal pain, bleeding, fevers, or worsening of medical condition. Patient was counseled about treatment plan, medications, possible side effects, patientverbalized understanding. All questions were answered to the best of my ability. This discharge took greater then 30 minutes in planning, reviewing documentation, counseling the patient, and discussing with other team members." ASSESSMENT ASSESSMENT Assessment Date of Service: Jan 16, 2024 Billing Provider: HELENA LEE MD Common Visit Codes: 29103-PNE/OBS DISCH DAY >30min HELENA LEE MD Jan 16, 2024 10:45
[2024-01-16 13:00] VITALS: BP 126/73; PULSE 79; RESP 16; TEMP 97.7; O2SAT 97
[2024-01-16] MEDS ORDERED: SUCRALFATE 1 GM/10 ML ORAL SUSP PO SCH (22:00)
== END 2024-01-16 17:00 | disposition home or self-care (01) | DRG 377 ==
LOC: ER 15:36 → OVERFLOW 20:30 → WEST WING 01-15 17:35
PROVIDERS: ATTEND Internal Medicine Gastroenterology
PROC: 0DB68ZX Excision of Stomach, Via Natural or Artificial Opening Endoscopic, Diagnostic (ICD-10-PCS; 2024-01-16)
PROC: 0DB98ZX Excision of Duodenum, Via Natural or Artificial Opening Endoscopic, Diagnostic (ICD-10-PCS; principal; 2024-01-16 07:18)
DX: K29.71 Gastritis, unspecified, with bleeding (principal); K85.90 Acute pancreatitis without necrosis or infection, unspecified; K29.91 Gastroduodenitis, unspecified, with bleeding; K29.81 Duodenitis with bleeding; K74.60 Unspecified cirrhosis of liver; E11.65 Type 2 diabetes mellitus with hyperglycemia; K44.9 Diaphragmatic hernia without obstruction or gangrene; E78.5 Hyperlipidemia, unspecified; N40.0 Benign prostatic hyperplasia without lower urinary tract symptoms; Z79.4 Long term (current) use of insulin
CPT/HCPCS: 36415; 71045; 74176; 76705; 80053; 80061; 80307; 80320; 81001; 82962; 83036; 83690; 85014; 85018; 85025; 85610; 85730; 86850; 86900; 86901; G0378; J2250; J2405; J2470; J2704

== ENCOUNTER → 2024-05-25 | Outpatient (CLI) | payer MEDICAID ==
[~2024-05-25] MED LIST: ATOR-507 PO; BACDST PO; GLIP10TA9 PO; PANT40TA2 PO; PHEN-922 PO; TAMS1CAP25 PO; TRAZ-227 PO
[2024-05-25 08:04] LABS: Urine Bacteria None Seen /hpf (None Seen)
[2024-05-25 08:34] LABS: Basophils # (auto) 0 10 ^3/uL (0-0.2); Basophils % (auto) 0.5 % (0.0-2.0); Eosinophils # (auto) 0.4 10 ^3/uL (0-0.8); Hematocrit 45.4 % (41.0-53.0); Hemoglobin 15.7 g/dL (13.5-17.5); Lymphocytes # (auto) 1.4 10 ^3/uL (0.4-5.4); Lymphocytes % (auto) 19.7 % (10.0-50.0); Mean Corpuscular Hgb Conc. 34.5 g/dL (32.0-36.0); Mean Corpuscular Volume 84.1 fL (80.0-100.0); Monocytes # (auto) 0.6 10 ^3/uL (0-1.3); Monocytes % (auto) 8.3 % (0.0-12.0); Neutrophils # (auto) 4.7 10 ^3/uL (1.6-8.6); Neutrophils % (auto) 66.5 % (37.0-80.0); Platelet Count (auto) 222 10^3/uL (140-450); Red Cell Distribution Width 13.5 % (11.8-14.3); White Blood Cell 7.1 10^3/uL (4.4-10.8)
[2024-05-25 08:47] LABS: Urine Blood 3+ /uL (Negative); Urine Clarity Ex.Turbid (Clear); Urine Color Colorless (Yellow); Urine Protein, UAD 1+ (Negative); Urine Specific Gravity 1.029 (1.001-1.035); Urine Squamous Epithelial Cell None Seen /hpf (<5); Urine Urobilinogen Normal (Negative); Urine WBC 1578 /HPF (0-3); Urine WBC Clumps PRESENT /hpf (None Seen); Urine pH 5.5 (5.0-9.0)
[2024-05-25 09:08] LABS: Albumin 4.6 g/dL (3.2-4.8); Alkaline Phosphatase 115 U/L (46-116); Anion Gap 10 (5-15); Aspartate Aminotransferase 23 U/L (13-40); BUN/Creatinine Ratio 8.3 (10.0-20.0); Bilirubin, Total 0.6 mg/dL (0.2-1.0); Blood Urea Nitrogen 11 mg/dL (9-23); Carbon Dioxide 28 mmol/L (20-31); Chloride 101 mmol/L (98-107); Potassium 4.7 mmol/L (3.5-5.1); Sodium 139 mmol/L (136-145); Total Protein 7.4 g/dL (5.7-8.2)
[2024-05-25 09:41] LABS: Alanine Aminotransferase 49 U/L (7-40); Glucose 320 mg/dL (74-106)
[2024-05-26 08:07] LABS: PSA Free 1.34 ng/mL; Prostate Specific Antigen 6.1 ng/mL (0.0-4.0)
== END | disposition home or self-care (01) ==
LOC: LAB 07:51
PROVIDERS: ATTEND Student in an Organized Health Care Education/Training Program
DX: N40.0 Benign prostatic hyperplasia without lower urinary tract symptoms (principal); I10 Essential (primary) hypertension; E11.9 Type 2 diabetes mellitus without complications
CPT/HCPCS: 36415; 80053; 81001; 83036; 84153; 84154; 85025

== ENCOUNTER 2024-05-26 13:22 | Emergency (ER) | payer MEDICAID ==
[~2024-05-26] VITALS: Ht 167.6 cm; Wt 73.2 kg
[~2024-05-26 13:22] MED LIST changes: -BACDST PO; -PHEN-922 PO
[2024-05-26 14:09] LABS: Urine Bacteria None Seen /hpf (None Seen)
[2024-05-26 14:24] LABS: Urine Blood 3+ /uL (Negative); Urine Clarity Turbid (Clear); Urine Color Colorless (Yellow); Urine Protein, UAD 1+ (Negative); Urine Specific Gravity 1.029 (1.001-1.035); Urine Squamous Epithelial Cell FEW /hpf (<5); Urine Urobilinogen Normal (Negative); Urine WBC 429 /HPF (0-3); Urine pH 5.5 (5.0-9.0)
--- NOTE | 2024-05-26 15:49 | ED.PDOC ---
General HPI Comments A 69 YEAR OLD MALE PRESENTS TO THE ED WITH COMPLAINT OF UTI SYMPTOMS. PATIENT STATES HE HAS BEEN EXPERIENCING A BURNING SENSATION WHEN URINATING AND URINARY FREQUENCY FOR THE PAST 2 WEEKS. PATIENT NOTES HE HAS A HISTORY OF UTIS IN THE PAST AND LAST HAD A UTI 1 MONTH AGO. PATIENT DENIES HEMATURIA, PENILE DISCHARGE, FLANK PAIN, FEVER, CHILLS, SHORTNESS OF BREATH, CHEST PAIN, ABDOMINAL PAIN, NAUSEA, VOMITING, HEADACHE, OR OTHER COMPLAINTS. NO OTHER SYMPTOMS OR MODIFYING FACTORS AT THIS TIME. PATIENT IS ALERT, ORIENTED X 4, AND HAS STEADY GAIT. Chief Complaint: Urinary Time Seen by MD: 13:46 Primary Care Provider: HALEY Reviewed notes: Nurses Notes, Medications, Allergies Allergies: Coded Allergies: NO KNOWN ALLERGIES (Unverified , 01/14/24) Home Meds Active Scripts Sulfamethoxazole W/Trimethopri (Bactrim Ds Tablet) 1 Tab Tb, 1 TAB PO BID for 10 Days, #20 TAB Prov:PRANAV REDDY 05/26/24 Phenazopyridine HCl (Phenazopyridine Hydrochlo) 200 Mg Tab, 200 MG PO TID, #6 TAB Prov:PRANAV REDDY 05/26/24 Pantoprazole Sodium Sesquihydr (Protonix) 40 Mg Tab, 40 MG PO BID for 30 Days, #60 TAB Prov:HELENA LEE MD 01/16/24 Reported Medications Tamsulosin HCl (Tamsulosin Hydrochloride) 0.4 Mg Cap, 0.4 MG PO, CAP 01/15/24 Trazodone Hcl (Trazodone Hcl) 50 Mg Tab, 50 MG PO, MG 01/15/24 Atorvastatin Calcium (Lipitor) 40 Mg Tab, 1 TAB PO DAILY, #30 TAB 5 Refills 01/15/24 Glipizide (Glipizide) 10 Mg Tab, 10 MG PO 2XW for 30 Days, MG 01/15/24 Information Source: Patient Mode of Arrival: Ambulatory Severity: Moderate Inability to void: None Timing: Weeks Duration: Since onset Prehospital treatment: None Onset: Spontaneous Symptoms: Dysuria, Frequency History of: UTI Location: None Penile discharge: None Modifying factors: None associated signs and symptoms: Dysuria, Frequency, Urgency Past Medical History PAST MEDICAL HISTORY: DM, UTI'S Surgical History: Denies all surgeries Family History Family History: Reviewed,noncontributory to illness Social History Smoker: Non-Smoker Alcohol: Occasionally Drugs: Denies Drug Use Lives In: Home Constitutional: denies: chills, diaphoresis, fatigue, fever, malaise, sweats, weakness, others EENTM: denies: blurred vision, double vision, ear bleeding, ear discharge, ear drainage, ear pain, ear ringing, eye pain, eye redness, hearing loss, mouth pain, mouth swelling, nasal discharge, nose bleeding, nose congestion, nose pain, photophobia, tearing, throat pain, throat swelling, voice changes, others Respiratory: denies: cough, hemoptysis, orthopnea, SOB at rest, shortness of breath, SOB with excertion, stridor, wheezing, others Cardiovascular: denies: chest pain, dizzy spells, diaphoresis, Dyspnea on exertion, edema, irregular heart beat, left arm pain, lightheadedness, palpitations, PND, syncope, others Gastrointestinal: denies: abdomen distended, abdominal pain, blood streaked bowels, constipated, diarrhea, dysphagia, difficulty swallowing, hematemesis, melena, nausea, poor appetite, poor fluid intake, rectal bleeding, rectal pain, vomiting, others Genitourinary: reports: burning, dysuria, frequency, urgency; denies: flank pain, hematuria, incontinence, penile discharge, penile sore, pain, testicle pain, testicle swelling, others Neurological: denies: dizziness, fainting, headache, left sided numbness, left sided weakness, numbness, paresthesia, pre-existing deficit, right sided numbness, right sided weakness, seizure, speech problems, tingling, tremors, weakness, others Musculoskeletal: denies: back pain, gout, joint pain, joint swelling, muscle pain, muscle stiffness, neck pain, others Integumetry: denies: bruises, change in color, change in hair/nails, dryness, laceration, lesions, lumps, rash, wounds, others Allergic/Immunocompromised: denies: Difficulty Healing, Frequent Infections, Hives, Itching, others Hematologic/Lymphatic: denies: anemia, blood clots, easy bleeding, easy bruising, swollen glands, others Endocrine: denies: excessive hunger, excessive sweating, excessive thirst, excessive urination, flushing, intolerance to cold, intolerance to heat, unexplained weight gain, unexplained weight loss, others Psychiatric: denies: anxiety, bipolar disorder, depression, hopeless, panic disorder, schizophrenia, sleepless, suicidal, others All Other Systems: Reviewed and Negative Physical Exam General Appearance: No Apparent Distress, Normal HEENT: Normal ENT Inspection, PERRL/EOMI, Pharynx Normal, TMs Normal Neck: Full Range of Motion, Non-Tender, Normal, Normal Inspection Respiratory: Chest Non-Tender, Lungs Clear, No Accessory Muscle Use, No Respiratory Distress, Normal Breath Sounds Cardiovascular: No Edema, No JVD, No Murmur, No Gallop, Normal Peripheral Pulses, Regular Rate/Rhythm Breast Exam: Deferred Gastrointestinal: No Organomegaly, Non Tender, No Pulsatile Mass, Normal Bowel Sounds, Soft Genitalia: Deferred Pelvic: Deferred Rectal: Deferred Extremities: No calf tenderness, Normal capillary refill, Normal inspection, Normal range of motion, Non-tender, No pedal edema Musculoskeletal : Apperance: Normal Neurologic: Alert, laborer pipelines II-XII nml as Tested, No Motor Deficits, Normal Affect, Normal Mood, No Sensory Deficits Cerebellar Function: Normal Reflexes: Normal Skin: Dry, Normal Color, Warm Peripheral Pulses: 2+ carotid (R), 2+ carotid (L) Lymphatic: No Adenopathy Was a procedure done? Was a procedure done?: No Differential Diagnosis Kidney stone (Female): N/A Kidney stone (Male): N/A Penile/Scrotal: N/A Urinary Problem (Male): Urethritis, Urolithiasis, UTI Urinary Problem (Female): N/A X-Ray, Labs, Meds, VS Vital Signs Date Time Temp Pulse Resp B/P (MAP) Pulse Ox O2 Delivery O2 Flow Rate FiO2 05/26/24 15:22 78 18 99 Room Air 05/26/24 15:22 98.1 78 18 98/74 (82) 99 98.1 05/26/24 13:45 98.1 78 18 98/74 (82) 99 98.1 Lab Test 05/26/24 13:43 Range/Units Urine Color Colorless Yellow Urine Clarity Turbid H Clear Urine pH 5.5 5.0-9.0 Urine Specific [place] 1.029 1.001-1.035 Urine Protein 1+ H Negative Urine Ketones Negative Negative Urine Blood 3+ H Negative /uL Urine Nitrite Negative Negative Urine Bilirubin Negative Negative Urine Urobilinogen Normal Negative mg/dL Urine Leukocyte Esterase 3+ Negative /uL Urine RBC 887 0 - 3 /hpf Urine Microscopic WBC 429 H 0-3 /HPF Urine Squamous Epithelial Cells Few <5 /hpf Urine Bacteria None seen None Seen /hpf Urine Glucose 4+ H Normal mg/dL Current Medications Medications (Trade) Dose Ordered Sig/Karey Route Start Time Stop Time Status Last Admin Ceftriaxone Sodium (Rocephin) 1,000 mg ONCE ONCE IM 05/26/24 15:45 05/26/24 15:46 DC 05/26/24 15:55 Insulin Human Regular (InsuLIN R) 10 units ONCE ONCE SC 05/26/24 15:45 05/26/24 15:46 DC 05/26/24 15:55 X-Ray, Labs, Meds, VS Comment EXTERNAL MEDICAL RECORDS REVIEWED: [NONE] INDEPENDENT HISTORIANS: [NONE] SOCIAL DETERMINANTS OF HEALTH: [NONE] LABS ORDERED: UA REVIEWED AND INTERPRETED RESULTS: BLOOD 3+, LEUKO 3+, WBC 429, UGLU 4+ IMAGING ORDERED: NONE TREATMENTS ORDERED: ROCEPHIN 1 G IM, INSULIN 10 UNITS SUBQ, PATIENT'S BLOOD SUGAR MEASURED 287 AFTER TREATMENT. PROCEDURES PERFORMED: NONE CRITICAL CARE TIME: NONE I HAVE DISCUSSED THE PATIENT WITH THE ATTENDING PHYSICIAN DR. LYNNE AND HE AGREES WITH THE PATIENT'S PLAN OF CARE AND DISPOSITION. BASED ON HISTORY OF PRESENT ILLNESS, AND PHYSICAL EXAM, PATIENT WILL BE DISCHARGED HOME. DISCUSSED PLAN FOR DISCHARGE HOME WITH RX [[facility]]. MEDICATION WARNINGS GIVEN. SHARED DECISION MAKING: PATIENT INSTRUCTED TO FOLLOW UP WITH PRIMARY CARE PROVIDER IN 1-2 DAYS FOR RE-EVALUATION OF SYMPTOMS. PATIENT VERBALIZES UNDERSTANDING TO RETURN TO ED FOR NEW OR WORSENING SYMPTOMS OR IF FOLLOW UP WITH PCP CANNOT BE OBTAINED. PATIENT FEELS COMFORTABLE GOING HOME AT THIS TIME. ALL QUESTIONS ADDRESSED AT TIME OF DISCHARGE. Time of 1ST Reevaluation: 17:00 Reevaluation 1ST: Improved Patient Education/Counseling: Diagnosis, Treatment, Need For Follow Up Family Education/Counseling: Diagnosis, Treatment, Need For Follow Up Medical Screening: No EMC Exist At This Time Departure 1 Departure Time of Disposition: 17:00 Impression: Primary Impression: Acute UTI (urinary tract infection) Additional Impression: Uncontrolled diabetes mellitus Qualified Codes: E11.65 - Type 2 diabetes mellitus with hyperglycemia Disposition: HOME / SELF CARE / HOMELESS Condition: Stable Additional Instructions: FOLLOW-UP WITH PCP IN 1 TO 2 DAYS. TAKE MEDICATIONS PRESCRIBED. RETURN TO ED FOR ANY NEW OR WORSENING SYMPTOMS. e-Prescriptions Sulfamethoxazole W/Trimethopri (Bactrim Ds Tablet) 1 Tab Tb 1 TAB PO BID for 10 Days, #20 TAB Prov: PRANAV REDDY 05/26/24 Phenazopyridine HCl (Phenazopyridine Hydrochlo) 200 Mg Tab 200 MG PO TID, #6 TAB Prov: PRANAV REDDY 05/26/24 Discharged With: Self Critical Care Note Critical Care Time?: No Stability Stability form required: No I personally scribed for PRANAV REDDY ([email or web address]) on 05/26/24 at 15:49. Electronically submitted by Favian Monge ([email or web address]). PRANAV REDDY May 26, 2024 15:49
[2024-05-26] MEDS: cefTRIAXone SOD 1,000 MG VL IM ONE (15:55)
[2024-05-26] MEDS: InsuLIN REG 1unit/0.01ml Soln (100units/ml) SC ONE (15:55)
[2024-05-26] MEDS ORDERED: PHEN-922 PO (16:59)
[2024-05-26] MEDS ORDERED: BACDST PO (16:59)
[2024-05-26 17:00] VITALS: BP 112/82; PULSE 81; RESP 18; TEMP 98; O2SAT 99
== END 2024-05-26 17:07 | disposition home or self-care (01) ==
LOC: ER 13:33
DX: N39.0 Urinary tract infection, site not specified (principal); E11.65 Type 2 diabetes mellitus with hyperglycemia; Z79.899 Other long term (current) drug therapy
CPT/HCPCS: 81001; 82962; 96372; 99284; J0696; J1815